=== PATIENT | female | born 1935 | race Caucasian/White ===

== ENCOUNTER 2018-03-02 11:10 | Emergency (ER) | payer OTHER ==
[~2018-03-02] VITALS: Ht 170.2 cm; Wt 74.8 kg
--- NOTE | ~2018-03-02 | EKG ---
[place] [address] [facility] [place] [address] ELECTROCARDIOGRAM REPORT Name: FELIBERTO SALES Room #: REG [facility]#: [id number] Admission: 03/02/18 Attend Phys: Discharge: Date of : 35 Report #: [id number] THIS REPORT FOR: //name// [facility] ED Test Date: 2018-03-02 Test Time: 11:18:49 Pat Name: FELIBERTO SALES Department: Room: Gender: F [employer] Office [employer]: JACKI : 1935 Requested By: Christianne Mccormack Order Number: [id number] MD: Sanjeev Husain Measurements Intervals [place] Rate: 66 P: ND: QRS: -4 QRSD: 112 T: -2 QT: 439 QTc: 460 Interpretive Statements Sinus rhythm. Borderline intraventricular conduction delay Abnormal R-wave progression, late transition No previous ECG available for comparison Electronically Signed On 03-02-2018 13:29:17 [employer] by Sanjeev Husain [email or web address] <ELECTRONICALLY SIGNED> By: Sanjeev Husain MD 03/02/18 1329 [id number] Sanjeev Husain MD /KAREN
[2018-03-02] MEDS ORDERED: TYLENOL EXTRA500 MG PO (11:20)
[2018-03-02] MEDS ORDERED: CETIRIZINE HCL5 MG PO (11:21)
[2018-03-02] MEDS ORDERED: TESSALON PERLE100 MG PO (11:21)
[2018-03-02] MEDS ORDERED: LIPITOR10 MG PO (11:21)
[2018-03-02] MEDS ORDERED: CRANBERRY425 MG PO (11:22)
[2018-03-02] MEDS ORDERED: COLACE100 MG PO (11:22)
[2018-03-02] MEDS ORDERED: NORCO 5-325 TA1 EACH PO (11:23)
[2018-03-02] MEDS ORDERED: ARICEPT10 M1 PO (11:23)
[2018-03-02] MEDS ORDERED: LEVEMIR SUBQ (11:24)
[2018-03-02 11:55] LABS: ABSOLUTE NEUTROPHILS 4.1 thou/uL (1.4-8.2); BASOPHILS 0.3 % (0.0-2.0); EOSINOPHILS 0.5 % (0.0-3.0); HEMATOCRIT 30.5 % (37.0-47.0); HEMOGLOBIN 10.4 gm/dL (12.0-15.0); LYMPHOCYTES 18.7 % (24.0-44.0); MCHC 34.1 g/dL (28.0-37.0); MONOCYTES 9.3 % (1.0-8.0); PLATELET COUNT 113 thou/uL (150-400); POLYS 71.2 % (36.0-66.0); RBC 3.36 mil/uL (4.20-5.00); RDW 15.1 % (10.5-14.5); WBC 5.8 thou/uL (4.0-11.0)
[2018-03-02 12:02] LABS: ANION GAP 8 mmol/L (7-16); BUN 13 mg/dL (7-18); CHLORIDE 109 mmol/L (98-107); CO2 25 mmol/L (21-32); CREATININE 1.2 mg/dL (0.6-1.0); GLUCOSE 76 mg/dL (74-106); POTASSIUM 3.5 mmol/L (3.5-5.1); SODIUM 142 mmol/L (136-145)
[2018-03-02 12:07] LABS: PROTIME 10.6 Seconds (9.3-11.4)
[2018-03-02 12:12] LABS: ALBUMIN 3.2 g/dL (3.4-5.0); SGOT 25 U/L (15-37); SGPT 25 U/L (30-65); TOTAL BILIRUBIN 0.6 mg/dL (<0.1-1.0); TOTAL PROTEIN 6.9 g/dL (6.4-8.2); TROPONIN-I <0.06 ng/mL (<0.06)
[2018-03-02] MEDS ORDERED: LYRICA 50 MG50 MG PO (13:11)
[2018-03-02] MEDS ORDERED: NAMENDA XR28 MG PO (13:11)
[2018-03-02] MEDS ORDERED: OMEPRAZOLE 20 M20 M1 PO (13:12)
[2018-03-02] MEDS ORDERED: NOVOLOG100 UNIT/1 SUBQ (13:12)
[2018-03-02] MEDS ORDERED: VITAMINC500 PO (13:13)
[2018-03-02] MEDS ORDERED: VITAMIN D3400 UNIT PO (13:14)
[2018-03-02 14:22] VITALS: BP 132/60
== END 2018-03-02 14:24 | disposition left against medical advice (07) ==
LOC: ER 11:10
PROVIDERS: Physician Assistant
DX: R07.89 Other chest pain (principal); E11.9 Type 2 diabetes mellitus without complications; E78.5 Hyperlipidemia, unspecified; I10 Essential (primary) hypertension; Z87.891 Personal history of nicotine dependence; Z91.041 Radiographic dye allergy status; Z88.5 Allergy status to narcotic agent; Z88.8 Allergy status to other drugs, medicaments and biological substances; Z79.4 Long term (current) use of insulin